=== PATIENT | female | born 1960 | race Two or more races ===

== ENCOUNTER 2020-03-31 17:26 | Emergency (ER) | payer MEDICAID ==
[~2020-03-31] VITALS: Ht 160 cm; Wt 100.0 kg
[2020-03-31] MEDS ORDERED: VITB INJ (17:55)
[2020-03-31] MEDS ORDERED: LIDO INJ (17:55)
[2020-03-31] MEDS ORDERED: PREG75 PO (17:55)
[2020-03-31] MEDS ORDERED: MELOXICAM PO (17:55)
[2020-03-31] MEDS ORDERED: CARISOPRODOL PO (17:55)
[2020-03-31] MEDS ORDERED: [UNRECOGNIZED DRUG - OTHER] INJ (17:55)
[2020-03-31] MEDS ORDERED: MethylPREDNISolone SOD SUCC 125 MG/2 ML VIAL IVP ONE (19:45)
[2020-03-31] MEDS ORDERED: FentaNYL CITRATE-PF 100 MCG/2 ML VIAL IVP ONE (19:45)
[2020-03-31] MEDS ORDERED: KETOROLAC TROMETHAMINE 30 MG/ML VIAL IVP ONE (19:45)
[2020-03-31 20:04] VITALS: BP 168/74
== END 2020-03-31 22:38 | disposition home or self-care (01) ==
LOC: EMS 17:29
DX: M54.42 Lumbago with sciatica, left side (principal); G89.29 Other chronic pain; Z88.6 Allergy status to analgesic agent; Z88.5 Allergy status to narcotic agent
CPT/HCPCS: 96374; 96375; 99284; J1885; J2930; J3010